=== PATIENT | female | born 1985 | race Caucasian/White ===

== ENCOUNTER 2020-09-10 19:28 | Emergency (ER) | payer OTHER ==
[~2020-09-10 19:28] MED LIST: AMOXICILLIN500 MG PO; GOLYTELY 40004000 ML GT; HUMALOG100 UNIT/1 SQ; IBUPROFEN600 MG PO; IBUPROFEN800 MG PO; SUBOXONE 8 MG-1 EACH SL
[2020-09-10 19:56] LABS: HEMOGLOBIN 10.7 gm/dl (12.3-15.3); RED BLOOD COUNT 4.77 M/UL (4.00-5.10); WHITE BLOOD COUNT 6.4 K/UL (4.5-11.0)
[2020-09-10 20:18] LABS: BUN/CREATININE RATIO 13 (0-10)
== END 2020-09-10 22:11 | disposition home or self-care (01) ==
LOC: ER1 19:28
PROVIDERS: Physician Assistant
DX: R10.11 Right upper quadrant pain (principal); R10.31 Right lower quadrant pain; E11.9 Type 2 diabetes mellitus without complications; Z90.49 Acquired absence of other specified parts of digestive tract; F17.290 Nicotine dependence, other tobacco product, uncomplicated
CPT/HCPCS: 80053; 81001; 83690; 85025; 87077; 87086; 87186; 99284

== ENCOUNTER 2020-09-28 21:46 | Emergency (ER) | payer OTHER ==
[2020-09-29] MEDS ORDERED: ZOFRAN ODT 4 MG4 MG SL (20:57)
[2020-09-29] MEDS ORDERED: CEPHALEXIN500 M1 PO (20:57)
== END 2020-09-28 23:15 | disposition left against medical advice (07) ==
LOC: ER1 21:46
DX: Z53.21 Procedure and treatment not carried out due to patient leaving prior to being seen by health care provider (principal)

== ENCOUNTER 2020-09-29 16:20 | Emergency (ER) | payer OTHER ==
[2020-09-29 17:30] LABS: HEMOGLOBIN 11.4 gm/dl (12.3-15.3); RED BLOOD COUNT 5.02 M/UL (4.00-5.10); WHITE BLOOD COUNT 11.4 K/UL (4.5-11.0)
[2020-09-29 18:06] LABS: BUN/CREATININE RATIO 21 (0-10)
[2020-09-29] MEDS ORDERED: ZOFRAN ODT 4 MG4 MG SL (20:57)
[2020-09-29] MEDS ORDERED: CEPHALEXIN500 M1 PO (20:57)
== END 2020-09-29 20:00 | disposition home or self-care (01) ==
LOC: ER1 16:20
PROVIDERS: Physician Assistant
DX: N12 Tubulo-interstitial nephritis, not specified as acute or chronic (principal); E10.65 Type 1 diabetes mellitus with hyperglycemia; Z90.49 Acquired absence of other specified parts of digestive tract; F17.290 Nicotine dependence, other tobacco product, uncomplicated
CPT/HCPCS: 80053; 81001; 82009; 82803; 82962; 83690; 84703; 85025; 87040; 87086; 96374; 96375; 99284; J0696; J1885; J2405; Q9967

== ENCOUNTER 2020-09-30 02:14 | Emergency (ER) | payer OTHER ==
[~2020-09-30 02:14] MED LIST changes: +CEPHALEXIN500 M1 PO; +ZOFRAN ODT 4 MG4 MG SL
[2020-09-30 03:28] LABS: HEMOGLOBIN 10.3 gm/dl (12.3-15.3); RED BLOOD COUNT 4.72 M/UL (4.00-5.10); WHITE BLOOD COUNT 11.7 K/UL (4.5-11.0)
[2020-09-30 04:08] LABS: BUN/CREATININE RATIO 17 (0-10)
== END 2020-09-30 07:49 | disposition home or self-care (01) ==
LOC: ER1 02:14
PROVIDERS: Physician Assistant Medical
DX: M54.9 Dorsalgia, unspecified (principal); R30.0 Dysuria; Z87.442 Personal history of urinary calculi
CPT/HCPCS: 80053; 82009; 82803; 85025; 99283

== ENCOUNTER 2020-12-10 09:23 | Emergency (ER) | payer OTHER ==
[2020-12-10 10:38] LABS: HEMOGLOBIN 9.9 gm/dl (12.3-15.3); RED BLOOD COUNT 4.61 M/UL (4.00-5.10); WHITE BLOOD COUNT 11.2 K/UL (4.5-11.0)
[2020-12-10 11:18] LABS: BUN/CREATININE RATIO 24 (0-10)
[2020-12-10] MEDS ORDERED: ZOFRAN4 MG PO (13:31)
[2020-12-10] MEDS ORDERED: OMNICEF 300 MG300 MG PO (13:31)
[2020-12-10] MEDS ORDERED: TORADOL 10 MG T10 MG PO (13:31)
== END 2020-12-10 13:56 | disposition home or self-care (01) ==
LOC: ER1 09:23
PROVIDERS: Physician Assistant Medical
DX: N13.2 Hydronephrosis with renal and ureteral calculous obstruction (principal); E11.51 Type 2 diabetes mellitus with diabetic peripheral angiopathy without gangrene; Z79.4 Long term (current) use of insulin; Z90.49 Acquired absence of other specified parts of digestive tract
CPT/HCPCS: 80053; 81001; 84703; 85025; 87077; 87086; 87186; 96374; 96375; 99284; J1885; J2270; J2405; Q9967

== ENCOUNTER 2021-04-22 21:19 | Emergency (ER) | payer OTHER ==
[~2021-04-22 21:19] MED LIST changes: +CEFDINIR300 MG PO; +OMNICEF 300 MG300 MG PO; +ONDANSETRON ODT4 MG SL; +PYRIDIUM200 MG PO; +TORADOL 10 MG T10 MG PO; +ZOFRAN4 MG PO
[2021-04-22 22:09] LABS: HEMOGLOBIN 9.4 gm/dl (12.3-15.3)
[2021-04-22 22:19] LABS: RED BLOOD COUNT 4.14 M/UL (4.00-5.10); WHITE BLOOD COUNT 14.5 K/UL (4.5-11.0)
[2021-04-23] MEDS ORDERED: LEVOFLOXACIN750 MG PO (03:51)
== END 2021-04-23 04:15 | disposition home or self-care (01) ==
LOC: ER1 21:19
PROVIDERS: Physician Assistant
DX: N12 Tubulo-interstitial nephritis, not specified as acute or chronic (principal); E10.9 Type 1 diabetes mellitus without complications; F17.290 Nicotine dependence, other tobacco product, uncomplicated
CPT/HCPCS: 80048; 81001; 83605; 85025; 96374; 96375; 99283; J0696; J1885